=== PATIENT | female | born 1995 | race African-American/Black ===

== ENCOUNTER 2017-03-21 08:53 | Emergency (ER) | payer OTHER ==
[~2017-03-21] VITALS: Ht 170.2 cm; Wt 90.8 kg
[2017-03-21] MEDS ORDERED: CLINDAMYCIN HC150 MG PO (09:54)
== END 2017-03-21 10:00 | disposition home or self-care (01) ==
LOC: FSED 08:53
DX: L02.214 Cutaneous abscess of groin (principal); Z33.1 Pregnant state, incidental
CPT/HCPCS: 99282

== ENCOUNTER 2017-05-07 08:03 | Emergency (ER) | payer OTHER ==
[~2017-05-07] VITALS: Ht 167.6 cm; Wt 93.9 kg
[~2017-05-07 08:03] MED LIST: CLINDAMYCIN HC150 MG PO
[2017-05-07] MEDS ORDERED: LANTUS 3ML100 UNITS/ (08:53)
[2017-05-07] MEDS ORDERED: HUMULIN R100 UNIT/2 (08:54)
[2017-05-07] MEDS ORDERED: PRENATAL ONE T1 EACH (09:03)
== END 2017-05-07 08:50 | disposition home or self-care (01) ==
LOC: FSED 08:03
DX: O26.91 Pregnancy related conditions, unspecified, first trimester (principal); L73.2 Hidradenitis suppurativa
CPT/HCPCS: 99282

== ENCOUNTER 2017-10-12 20:02 | Emergency (ER) | payer OTHER ==
[~2017-10-12] VITALS: Ht 167.6 cm; Wt 93.0 kg
[~2017-10-12 20:02] MED LIST changes: +HUMULIN R100 UNIT/2; +LANTUS 3ML100 UNITS/; +PRENATAL ONE T1 EACH
[2017-10-12] MEDS ORDERED: DOXYCYCLINE HY100 MG PO (20:38)
--- OUTSIDE RECORDS SUMMARY | 2017-11-26 03:18 | XMS REPORT | Continuity of Care Document ---
Author Author [facility] Organization [facility] Address [address] [place] [address] Phone Unavailable Care Team Providers Care Project Scheduler Name Role Phone NONSTAFF PCP Unavailable Insurance Providers Guarantor Jeffrey Gtz Address [address] [facility] [address] [place] [phone] Email [email or web address] Payer [facility] Choice Policy Number [id number] Subscriber's Name Jeffrey Gtz Relationship 18 Self / Same As Patient Group Number [id number] Effective Date 17 Payer [facility] Policy Number [id number] Subscriber's Name Jeffrey Gtz Relationship 18 Self / Same As Patient Group Number [id number] Group Name [employer]. Effective Date 17 Advance Directives Directive Response Recorded Date/Time Does the patient have an advance directive? No 03/21/17 9:40am If yes, is advance directive on file with [facility]? No 03/21/17 9:40am If not on file with [facility] will patient provide a copy? No 03/21/17 9:40am Do you have a Directive to Physician? No 05/07/17 8:25am Do you have a Medical Power of Batter Out? No 05/07/17 8:25am Do you have an out of hospital Do Not Resuscitate Order? No 05/07/17 8:25am Do you have any special needs we should be aware of? No 05/07/17 8:25am Do you have a support person here with you today? No 05/07/17 8:25am Did patient receive Notice of Privacy Practices? Yes 05/07/17 8:25am Did patient receive patient rights and responsibilities? Yes 05/07/17 8:25am Problems No problem information available. Medications Current Home Medications Medication Dose Units Route Directions Days Qty Instructions Start Date Clindamycin Hcl 150 Mg Capsule 300 Mg Oral Three Times A Day 10 Days 30 2 TABS PO TID 03/21/17 Insulin Glargine (Lantus 3ML Pen) 100 Units/1 Ml Inj 35 Bedtime Insulin Regular, Human (Humulin R) 100 Unit/1 Ml Vial 11 Three Times A Day Vit #108/Iron/Fa ( One Tablet) 1 Each Tablet Social History Smoking Status Start Date Stop Date Never Smoker Hospital Discharge Instructions No hospital discharge instruction information available. Plan of Care Discharge Date 05/07/17 8:50am Disposition HOME, SELF-CARE Condition at Discharge Stable Instructions/Education Provided Rash - Nonspecific Forms Provided Work/School Excuse Prescriptions See Medication Section Additional Instructions/Education Apply heat to the area, for 20 minutes, every couple of hours, while awake. Standing in the shower and allowing the hot water to hit the right armpit is also helpful. Follow-up with a general surgeon, for definitive removal of the painful mass in the right armpit. Work hard on getting your blood sugars optimally controlled, to help decrease the risk of infection and increase the opportunity for healing. Take all antibiotics. For pain, you may take: - Extra Strength Tylenol (Acetaminophen) 500 mg - 2 tabs, every 4 hours, as needed, for pain. - Ibuprofen/Motrin 200 mg - 3-4 tab together, every 8 hours, with food, as needed for pain. Functional Status No functional status information available. Allergies, Adverse Reactions, Alerts Allergen Type Severity Reaction Status Last Updated Tramadol Allergy Severe HEADACHE, VOMITING Active 05/07/17 Immunizations No immunization information available. Vital Signs Acute Vital Signs Vital Response Date/Time Pulse Pulse Rate (adult) 88 bpm (60 - 90) 05/07/2017 9:05am Respiratory Rate 16 bpm (12 - 24) 05/07/2017 9:05am Height 5 ft 6 in 05/07/2017 8:10am Weight 207 lb 05/07/2017 8:10am Body Mass Index 33.4 kg/m^2 05/07/2017 8:10am Results No relevant diagnostic test, laboratory data and/or discharge summary information available. Procedures No procedure information available. Encounters Encounter Location Arrival/Admit Date Discharge/Depart Date Attending Provider Departed Emergency Room [facility] 05/07/17 8:03am 8:50am KEN MARTINEZ MD Departed Emergency Room [facility] 03/21/17 8:53am 10:00am KEN MARTINEZ MD
--- OUTSIDE RECORDS SUMMARY | 2017-11-26 03:18 | XMS REPORT | Summary of Care ---
Author Author [facility] Address Unknown Phone Unavailable Encounter ALONSO Ramirez(FIN) [id number] Date(s): 04/14/17 - 04/14/17 [facility] [address] [place] [address]- [phone] Discharge Disposition: Home or Self Care Attending Physician: Rebekah Paiz MD Vital Signs Most recent to 1 oldest [Reference Range]: Temperature Oral 98.2 DegF [96.4-99.1 DegF] (04/14/17 2:32 PM) Blood Pressure 120/77 mmHg [90-140/60-90 mmHg] (04/14/17 2:32 PM) Peripheral Pulse 83 bpm Rate [60-100 bpm] (04/14/17 2:32 PM) Weight 95.028 kg (04/14/17 2:32 PM) Problem List Condition Effective Dates Status Health Status Informant Diabetes(Confirmed) Resolved Allergies, Adverse Reactions, Alerts Substance Reaction Severity Status traMADol Dizzy Active Medications azithromycin 250 mg oral tablet See Instructions, Take 2 tablets by mouth the first day then 1 tablet by mouth daily on days 2-5., X 5 day, # 6 tab, 0 Refill(s), [email or web address] Start Date: 04/14/17 Stop Date: 04/19/17 Status: Completed Humalog SUB-Q, 0 Refill(s) Start Date: 04/14/17 Status: Ordered Lantus 100 units/mL SUB-Q, 0 Refill(s) Start Date: 04/14/17 Status: Ordered loratadine 10 mg oral tablet 10 mg=1 tab, PO, Daily, # 14 tab, 0 Refill(s), [email or web address] Start Date: 04/14/17 Stop Date: 04/28/17 Status: Ordered Mucinex 600 mg oral tablet, extended release 600 mg=1 tab, PO, Q12H, X 10 day, # 20 tab, 0 Refill(s), Pharmacy: [id number] Start Date: 04/14/17 Stop Date: 04/24/17 Status: Completed DHA 200 mg=, PO, Daily, 0 Refill(s) Start Date: 04/14/17 Status: Ordered Results No data available for this section Immunizations No data available for this section Procedures No data available for this section Social History Social History Type Response Smoking Status Never smoker; Exposure to Tobacco Smoke None; Cigarette Smoking Last 365 Days No; Reg Smoking Cessation Counseling No entered on: 04/14/17 Assessment and Plan No data available for this section
== END 2017-10-12 20:57 | disposition home or self-care (01) ==
LOC: FSED 20:02
DX: N76.4 Abscess of vulva (principal); I10 Essential (primary) hypertension; E11.9 Type 2 diabetes mellitus without complications
CPT/HCPCS: 87071; 87186; 87205; 99282